=== PATIENT | male | born 1990 | race Caucasian/White ===

== ENCOUNTER 2016-08-04 12:14 | Emergency (ER) | payer SELFPAY ==
[~2016-08-04 12:14] MED LIST: ATIVAN2 M1 PO; CEPHALEXIN500 M1 PO; IBUPROFEN800 M1 PO; NO HOME MEDICATION XX; NO MEDS; OXYCODONE HCL5 M1 PO; ROXICODONE5 M2 PO; TYLENOL325 M2 PO
[2016-08-04] MEDS ORDERED: NO HOME MEDICATION XX (12:28)
[2016-08-04] MEDS ORDERED: NORCO 5-325 TA1 EACH PO (14:09)
== END 2016-08-04 14:20 ==
LOC: EDMED 12:14
PROC: 2W3DX1Z Immobilization of Left Lower Arm using Splint (ICD-10-PCS; principal; 2016-08-04)
DX: S69.92XA Unspecified injury of left wrist, hand and finger(s), initial encounter (principal); F41.9 Anxiety disorder, unspecified; F17.200 Nicotine dependence, unspecified, uncomplicated; W22.8XXA Striking against or struck by other objects, initial encounter